=== PATIENT | female | born 1995 | race Caucasian/White ===

== ENCOUNTER → 2021-09-02 15:16 | Outpatient (BNVA) | payer MEDICAID, SELFPAY | PROVIDERS: Visit Provider Obstetrics & Gynecology | DX: O99.891 Other specified diseases and conditions complicating pregnancy (principal); R31.9 Hematuria, unspecified; Z3A.00 Weeks of gestation of pregnancy not specified | CPT/HCPCS: 84315; 87086 ==

== ENCOUNTER → 2021-09-11 15:00 | Outpatient (BNVA) | payer MEDICAID, SELFPAY | PROVIDERS: Visit Provider Obstetrics & Gynecology | DX: Z34.90 Encounter for supervision of normal pregnancy, unspecified, unspecified trimester (principal) | CPT/HCPCS: 84315; 87086 ==

== ENCOUNTER → 2021-09-12 10:57 | Outpatient (BNVA) | payer MEDICAID, SELFPAY | PROVIDERS: Visit Provider Obstetrics & Gynecology | DX: Z34.90 Encounter for supervision of normal pregnancy, unspecified, unspecified trimester (principal); Z20.822 Contact with and (suspected) exposure to COVID-19 | CPT/HCPCS: 84315; 87635 ==

== ENCOUNTER 2021-09-18 12:33 | Inpatient (IN) | payer MEDICAID, SELFPAY ==
[2021-09-18] VITALS (19 sets, daily range): BP systolic 102–138; BP diastolic 51–78; PULSE 68–110; RESP 16–17; TEMP 36.2–36.8; BMI 38.7
[2021-09-18] MEDS: miSOPROStol 100 mcg tablet 25 MCG VAGINAL ×3 (13:38→22:03)
[2021-09-18] MEDS: dextrose 5%-lactated ringers 1,000 ML 125 ML IV (13:51)
[2021-09-18] MEDS: ampicillin 2,000 MG in sodium chloride 0.9% (plus) 50 ML 100 MG IV (13:51)
[2021-09-18 16:19] LABS: Basophils # 0.1 10^3/uL (0.0-0.1); Basophils % 0.4 %; Eosinophils # 0.2 10^3/uL (0.0-0.8); Eosinophils % 1.7 %; Hematocrit 36.3 % (37.0-47.0); Hemoglobin 11.5 g/dL (11.5-15.3); Lymphocytes # 2.2 10^3/uL (0.8-4.8); Lymphocytes % 17.3 %; Mean Corpuscular HGB Conc 31.7 g/dL (30.0-36.0); Mean Corpuscular Hemoglobin 26.9 pg (28.0-34.0); Mean Platelet Volume 11.2 fL (7.4-10.4); Monocytes # 0.8 10^3/uL (0.2-0.9); Neutrophils # 9.28 10^3/uL (1.8-7.7); Neutrophils % 73.8 %; Nucleated Red Blood Cells % 0 %; Platelet Count 296 10^3/cmm (130-400); Red Blood Count 4.27 10^6/uL (4.1-5.3); White Blood Count 12.6 10^3/uL (4.0-10.0)
[2021-09-18 16:52] LABS: Amphetamines Screen Urine Negative (Negative); Barbiturates Screen Urine Negative (Negative); Benzodiazepines Screen Urine Negative (Negative); Cocaine Screen Urine Negative (Negative); Opiate Screen Urine Negative (Negative); PCP Screen Urine Negative (Negative); THC Screen Urine Negative (Negative)
[2021-09-18] MEDS: ampicillin 1,000 MG in sodium chloride 0.9% (plus) 50 ML 100 MG IV ×2 (18:02→22:03)
[2021-09-19] VITALS (41 sets, daily range): BP systolic 97–140; BP diastolic 52–80; PULSE 63–99; RESP 15–17; TEMP 36.6–36.8; O2SAT 94–98
[2021-09-19] MEDS: fentaNYL 50 mcg/mL INJ 2mL IVP ×3 (01:15→04:05)
[2021-09-19] MEDS: ampicillin 1,000 MG in sodium chloride 0.9% (plus) 50 ML 100 MG IV (01:56)
--- NOTE | 2021-09-19 05:37 | P.PCNOB_ITS ---
Delivery Note: Date of delivery: September 19, 2021 Pre-delivery diagnoses: Term . Post-delivery diagnoses: Term delivered Procedure: Spontaneous vaginal delivery Delivering Physician: Maicol Shipman MD Estimated blood loss (mL): 300 Pre-Delivery Course: Ms. Rodríguez is a 26 year old patient with an LMP of 11/24/20, AALIYAH of 09/16/21 based on her 7 week sonogram placing her at 40+3 weeks gestation. She was admitted for elective induction. HPI: Received appropriate care. She was an OB transfered of care from Dr. Duke. care complicated by morbid obesity. labs have all been normal, including negative for HIV. She was found to positive for Group B Strep from screening at 36 weeks. She has gained approximately 35 lbs throughout the . She denies a history of HTN during . Glucose tolerance screening for gestational diabetes was negative. Delivery: The nurse called me that the patient was noted to be 7 cm dialated and 95% efface with rapid progression from 5cm with out epidural and urged to push. Then she call me 5 min later to informing the patient is complete and pushing. She progress rapidly to a precipitous delivery and without epidural anesthesia. At 0458 the patient delivered a viable term weighing 3300 g with scores of 8 and 9at one and five minutes, respectively. Then the placenta was delivered intact intact and the uterus was explored. 20 units of Pitocin was placed in the IV bag to firm the uterus. Examination of the cervix and vaginal vault did not reveal any lacerations. A vaginal pack was then placed. Examination of the perineum showed no lacerations noted. The vaginal pack was then removed. The patient tolerated this procedure well, and recovered in L&D with her in their LDR room. All sponge and needle counts were correct. History History History 4 Term 1 Miscarriages/Ectopic 2 0 Living Children 1 Coding Level of Care Code Acute Management Coordinator for Chg Cesilia
[2021-09-19] MEDS: dextrose 5%-lactated ringers 1,000 ML 125 ML IV (07:10)
--- NOTE | 2021-09-19 08:09 | PC.NURSE ---
Precipitous delivery without physician Primary RN, Leila, was in room with another patient starting an IV at 0440. ESSENCE James came in a patient room and reported to primary RN that patient was vomiting. Primary RN instructed ESSENCE James to perform SVE immediately. Last SVE had been done at 0405 with fentanyl administration. Exam was 5/95/-2. SVE at 0441 by ESSENCE James was 5.5/95 bulging BOW. Primary RN entered patient's room at 0445 as ESSENCE Xiong was performing SVE and reports 5.5 as well. Patient is visibly uncomfortable and verbalizing pressure. ESSENCE Xiong leaves to call physician for delivery. Primary RN remains with patient. SVE at 0448 is 7/95/-2. Primary RN coaching patient to breathe through contractions. Patient involuntarily pushing at 0457, SVE 10/100/+3, SROM clear fluid. ESSENCE Noyola Calls Dr Shipman again to report imminent delivery. Baby's head delivered in LUIS position at 0458, loose nuchal x1 reduced per primary RN, baby's body delivered immediately after. Baby placed on warm dry towel on mother's abdomen. Mouth and nose bulb suctioned, baby dried and stimulated. Minimal bleeding noted vaginally. Mother and baby supported by present staff. Physician arrives to the room at 0525. Patient set up in [facility], umbilical cord clamped per Dr Shipman and cut per support person. Placenta delivered at 0529.
[2021-09-19] MEDS: docusate sodium 100 mg Capsule PO ×2 (09:13→20:12)
[2021-09-19] MEDS: ibuprofen 800 mg tablet PO ×3 (09:13→21:17)
[2021-09-19] MEDS: prenatal vitamin Capsule 1 CAP PO (09:13)
--- NOTE | 2021-09-19 11:30 | PC.NURSE ---
pt ambulated to OB 11. oriented to room, call light, and proud parent pack.
[2021-09-19] MEDS: acetaminophen 325 mg Tablet 650 MG PO (13:35)
[2021-09-19 18:24] LABS: Hematocrit 32.1 % (37.0-47.0); Hemoglobin 10.3 g/dL (11.5-15.3); Mean Corpuscular HGB Conc 32.1 g/dL (30.0-36.0); Mean Corpuscular Hemoglobin 26.8 pg (28.0-34.0); Mean Corpuscular Volume 83.6 fl (81-99); Mean Platelet Volume 10.5 fL (7.4-10.4); Platelet Count 279 10^3/cmm (130-400); Red Blood Count 3.84 10^6/uL (4.1-5.3); Red Cell Distribution Width 13.9 % (12.1-15.1)
[2021-09-19] MEDS: benzocaine-menthol 78 gm Canister 1 SPRAY TOPICAL (20:12)
[2021-09-20] MEDS: acetaminophen 325 mg Tablet 650 MG PO (04:02)
[2021-09-20 04:45] VITALS: BP 104/61; PULSE 61; RESP 14; TEMP 36.6; O2SAT 97
[2021-09-20 08:00] VITALS: BP 111/68; PULSE 72; RESP 16; TEMP 36.7
[2021-09-20] MEDS: prenatal vitamin Capsule 1 CAP PO (09:34)
[2021-09-20] MEDS: docusate sodium 100 mg Capsule PO ×2 (09:34→18:01)
[2021-09-20] MEDS: ibuprofen 800 mg tablet PO ×3 (09:34→20:05)
--- NOTE | 2021-09-20 18:14 | P.DS_ITS ---
Discharge Providers SUPERINTENDENT DRILLING Date of Admission: 09/18/21 12:33 Date of Discharge: 09/29/21 Attending Provider at Admission: Maicol Shipman MD Attending Provider at Discharge: Maicol Shipman MD Reason for Visit Reason for Visit: Induction Hospital Course Hospital Course Ms. Rodríguez is a 26 year old patient with an LMP of 11/24/20, AALIYAH of 09/16/21 based on her 7 week sonogram placing her at 40+3 weeks gestation. She was admitted for elective induction. HPI: Received appropriate care. She was an OB transfered of care from Dr. Duke.? care complicated by morbid obesity. labs have all been normal, including negative for HIV. She was found to positive for Group B Strep from screening at 36 weeks. She has gained approximately 35 lbs throughout the . She denies a history of HTN during . Glucose tolerance screening for gestational diabetes was negative. She progressed to have a precipitous spontaneous vaginal delivery without complications. observation has been uneventful. She is afebrile and hemodynamically stable. Tolerating diet well. Ambulating without difficulty. Information Peripartum Data: Delivery Method: Vaginal Physical Exam Narrative: GA; alert and oriented x 3 HEENT: normal Breasts: engorged Nipples - skin intact Lungs; clear to auscultation Heart: regular rhythm, no murmurs. Abd: Appropriately tender. BS+. Uterine fundus below umbilicus. No Fundal Tenderness. Perineum: normal lochia. Extremities: no edema, no cyanosis, no tenderness. History History History 4 Term 1 Miscarriages/Ectopic 2 0 Living Children 1 Discharge Data Studies Completed and Pending Laboratory Results WBC 15.0 10^3/uL (4.0-10.0) H 09/19/21 18:05 RBC 3.84 10^6/uL (4.1-5.3) L 09/19/21 18:05 Hgb 10.3 g/dL (11.5-15.3) L 09/19/21 18:05 Hct 32.1 % (37.0-47.0) L 09/19/21 18:05 MCV 83.6 fl (81-99) 09/19/21 18:05 MCH 26.8 pg (28.0-34.0) L 09/19/21 18:05 MCHC 32.1 g/dL (30.0-36.0) 09/19/21 18:05 RDW 13.9 % (12.1-15.1) 09/19/21 18:05 Plt Count 279 10^3/cmm (130-400) 09/19/21 18:05 MPV 10.5 fL (7.4-10.4) H 09/19/21 18:05 Neut % (Auto) 73.8 % 09/18/21 13:25 Lymph % (Auto) 17.3 % 09/18/21 13:25 [place] % (Auto) 6.0 % 09/18/21 13:25 Eos % (Auto) 1.7 % 09/18/21 13:25 Baso % (Auto) 0.4 % 09/18/21 13:25 Neut # (Auto) 9.28 10^3/uL (1.8-7.7) H 09/18/21 13:25 Lymph # (Auto) 2.2 10^3/uL (0.8-4.8) 09/18/21 13:25 [place] # (Auto) 0.8 10^3/uL (0.2-0.9) 09/18/21 13:25 Eos # (Auto) 0.2 10^3/uL (0.0-0.8) 09/18/21 13:25 Baso # (Auto) 0.1 10^3/uL (0.0-0.1) 09/18/21 13:25 Nucleated RBC % (auto) 0 % 09/18/21 13:25 Nucleated RBCs # 0.0 /100WBC 09/18/21 13:25 Urine Opiates Screen Negative ng/mL (Negative) 09/18/21 16:29 Ur Barbiturates Screen Negative ng/mL (Negative) 09/18/21 16:29 Ur Phencyclidine Scrn Negative ng/mL (Negative) 09/18/21 16:29 Ur Amphetamines Screen Negative ng/mL (Negative) 09/18/21 16:29 U Benzodiazepines Scrn Negative ng/mL (Negative) 09/18/21 16:29 Urine Cocaine Screen Negative ng/mL (Negative) 09/18/21 16:29 U Marijuana (THC) Screen Negative ng/mL (Negative) 09/18/21 16:29 Vitals Last Vital Signs Temp 98.0 F 09/20/21 08:00 Pulse 72 09/20/21 08:00 Resp 16 09/20/21 08:00 BP 111/68 09/20/21 08:00 Pulse Ox 97 09/20/21 04:45 Discharge Plan Discharge Patient Disposition: Home Condition: Stable Prescriptions: New ibuprofen 800 mg tablet 800 mg PO TID PRN (Reason: pain) Qty: 60 0RF Iron (ferrous sulfate) 325 mg (65 mg iron) tablet 325 mg PO BID Qty: 60 0RF Colace 100 mg capsule 100 mg PO BID Qty: 60 0RF acetaminophen 325 mg capsule 325 mg PO Q4H PRN (Reason: fever or pain) Qty: 60 0RF Continued Plus (calcium carb) 27 mg iron- 1 mg tablet 1 tab PO DAILY 0RF ferrous sulfate 325 mg (65 mg iron) tablet 325 mg PO DAILY 0RF famotidine [Pepcid] 20 mg tablet 20 mg PO DAILY 0RF Discharge Orders: Discharge Order (Routine); Ordered 09/20/21 Ordered By: Maicol Shipman Referrals: Maicol Shipman MD [Physician] - 6 Weeks (CALL THURSDAY MORNING AND MAKE APPOINTMENT FOR YOU 6 WEEK APPOINTMENT) Discharge Diet: Regular Discharge Activity: Limit activity as instructed Patient Instructions: Depression (DC), Bleeding (ED), Preeclampsia and Eclampsia After Delivery (GEN), OB Discharge Report, OB Food/Drug Interaction Guide, OB Care at Home, Opioid Safety, OB Home Care, OB Proud Parent Packet, OB Vaginal Deliveries - [facility], Abnormal Bleeding Activity Restrictions/Additional Instructions: 1. Please call [facility] on next working day to make your appointment in 6 weeks. 2. Please stay home until you come back to the clinic on first post-operative check up. 3. Please follow instructions on your medications CAREFULLY. 4. If you have abdominal incision, do not cover it unless dressing is necessary because of drainage. OK to shower, but avoid bath. Leave steri-strips until they fall off. If they are still on one week after surgery, you may remove them. 5. If you had vaginal surgery or vaginal repair, Dr. Shipman may instruct you to take SITZ bath. 6. Yellow, blood tinged odorous vaginal discharge is usually normal after hysterectomy or vaginal surgeries. 7. No sexual intercourse, tampons, or douches until you are completely released from the post-operative care. 8. Avoid constipation by eating right and maybe using some Metamucil or Milk of Magnesia. 9. All prescription refills are given during the working hours. Please do no wait till it runs out. Call the clinic at [phone] before your medication runs out. The clinic will get in touch with your doctor to prescribe medications if necessary. 10. Please remain within 40 mile radius from our hospital because emergencies do happen now and then during the post-operative period. 11. If you have stairs at home, take one step at a time slowly and minimize the number of trips. It helps to stay in one floor for the next few days. No lifting except what you can lift by one hand until you are released from the post-operative care. 12. Driving is discouraged until you are well healed. It may be 3-4 weeks before you feel strong enough to drive. You should be able to turn and look through the rear window without pain and you should be able to push the brake pedal very hard without pain before you drive. No fast rules, but SAFETY should be your primary concern. DO NOT drive if you are on sedating medications such as narcotics. 13. Call the clinic (during working hours) to make urgent appointment or go to the Emergency room, if any of the following occurs: i. Vaginal bleeding becomes heavy, more than a period. ii. Incision becomes red and sore, or drains pus. iii. Your temperature is over 100.4 or you have chill. iv. IV site becomes red and swollen (a little ``knot?? is usually OK) v. Persistent nausea and vomiting vi. Persistent constipation or diarrhea vii. Rash or allergic reaction to medications. Discharge Attestations SUPERINTENDENT DRILLING Time Spent in Discharge Care*: greater than 30 min Coding Level of Care Code Acute Steel Floor Pan Placing Supervisor for Kimberli Lomas
--- NOTE | 2021-09-20 18:54 | PC.NURSE ---
THIS GLOVE CUTTER CALLED [facility] IN [facility] AND PATIENTS MEDICATIONS DID GO THRU ORDERED.
[2021-09-20 20:10] VITALS: BP 117/73; PULSE 68; RESP 16; TEMP 36.7; O2SAT 98
[2021-09-20 20:20] VITALS: BP 117/73; PULSE 68; RESP 16; TEMP 36.7; O2SAT 98
== END 2021-09-20 20:20 | disposition home or self-care (01) | DRG 806 ==
PROVIDERS: Obstetrics & Gynecology; Admitting Provider Obstetrics & Gynecology; Visit Provider Obstetrics & Gynecology
DX: O99.344 Other mental disorders complicating childbirth (principal); O99.324 Drug use complicating childbirth; Z37.0 Single live birth; O98.82 Other maternal infectious and parasitic diseases complicating childbirth; F41.8 Other specified anxiety disorders; F12.90 Cannabis use, unspecified, uncomplicated; B95.1 Streptococcus, group B, as the cause of diseases classified elsewhere; Z3A.40 40 weeks gestation of pregnancy
CPT/HCPCS: 36415; 59409; 80306; 85025; 85027; J0290; J3010

== ENCOUNTER → 2022-09-01 10:04 | Outpatient (BNVA) | payer MEDICAID, SELFPAY | PROVIDERS: Visit Provider Obstetrics & Gynecology | DX: O16.9 Unspecified maternal hypertension, unspecified trimester (principal); O26.90 Pregnancy related conditions, unspecified, unspecified trimester; R82.90 Unspecified abnormal findings in urine; Z3A.00 Weeks of gestation of pregnancy not specified | CPT/HCPCS: 84315; 87081; 87086 ==

== ENCOUNTER 2022-09-04 17:34 | Outpatient (CLI) | payer MEDICAID, SELFPAY ==
[2022-09-04 17:52] VITALS: BP 112/67; PULSE 95; TEMP 35.7
[2022-09-04 17:59] VITALS: BMI 44.9
[2022-09-04 18:08] VITALS: BP 121/76; PULSE 96
[2022-09-04 18:19] VITALS: RESP 16
[2022-09-04 18:22] VITALS: BP 117/68; PULSE 95
== END 2022-09-04 18:40 | disposition home or self-care (01) ==
LOC: OPOB 17:35 → OBGYN 17:36
PROVIDERS: Visit Provider Obstetrics & Gynecology
DX: O26.899 Other specified pregnancy related conditions, unspecified trimester (principal); Z3A.00 Weeks of gestation of pregnancy not specified
CPT/HCPCS: 59025; 99211

== ENCOUNTER 2022-09-17 14:20 | Outpatient (CLI) | payer MEDICAID, SELFPAY ==
[2022-09-17] VITALS (9 sets, daily range): BP systolic 110–162; BP diastolic 67–89; PULSE 83–106; TEMP 35.9; BMI 45.5
[2022-09-17] MEDS: dextrose 5%-lactated ringers 1,000 ML 999 ML IV ×2 (15:25→15:26)
[2022-09-17 15:43] LABS: Bilirubin Urine Neg (Negative); Blood Urine 3+ (Negative); Glucose Urine UA Norm (Normal); Ketones Urine 1+ (Negative); Leukocyte Esterase Urine 2+ (Negative); Nitrate Urine Negative (Negative); Protein Urine Neg (Negative); RBC Urine 15-25 /hpf (0-2); Urine Appearance Cloudy (CLEAR); Urine Color Yellow (Yellow); Urobilinogen Urine Neg (Negative); WBC Urine >100 /hpf (0-5); pH Urine 6 (5-7)
[2022-09-17 15:44] LABS: Add Urine Culture? No; Amorphous Sediment Urine 1+ /hpf; Bacteria Urine 3+ /hpf; Mucus Urine 1+ /hpf; Squamous Epithelial Cell Urine 15-25 /hpf (0-5)
--- NOTE | 2022-09-17 16:17 | PC.NURSE ---
1600 PT STATES PAIN STILL AN 8 BUT DOES ACT LIKE SHE FEELS BETTER. PT UP TO BATHROOM TO VOID.
[2022-09-17] MEDS: cefTRIAXone 2,000 MG in sodium chloride 0.9% (plus) 50 ML 100 MG IV (16:49)
== END 2022-09-17 18:00 | disposition home or self-care (01) ==
LOC: OPOB 14:24 → OBGYN 14:25
PROVIDERS: PCP Obstetrics & Gynecology; Visit Provider Obstetrics & Gynecology
DX: O26.899 Other specified pregnancy related conditions, unspecified trimester (principal); R10.9 Unspecified abdominal pain; M54.50 Low back pain, unspecified; Z3A.00 Weeks of gestation of pregnancy not specified
CPT/HCPCS: 59025; 81001; 87086; 99211; J0696; J7121

== ENCOUNTER → 2022-09-24 16:05 | Outpatient (BNVA) | payer MEDICAID, SELFPAY | PROVIDERS: PCP Obstetrics & Gynecology; Visit Provider Obstetrics & Gynecology | DX: Z34.90 Encounter for supervision of normal pregnancy, unspecified, unspecified trimester (principal) | CPT/HCPCS: 84315; 87086 ==

== ENCOUNTER 2022-09-29 13:54 | Outpatient (CLI) | payer MEDICAID, SELFPAY ==
[2022-09-29 13:54] VITALS: BMI 45.1
[2022-09-29 14:08] VITALS: BP 152/87; PULSE 104
[2022-09-29 14:28] VITALS: BP 125/70; PULSE 93
[2022-09-29 14:29] LABS: Nitrazine Paper, PH Negative
[2022-09-29 14:46] LABS: Actim Prom Negative
[2022-09-29 14:48] VITALS: BP 140/81; PULSE 81
[2022-09-29 14:58] VITALS: BP 140/81; PULSE 81; RESP 18
== END 2022-09-29 14:55 | disposition home or self-care (01) ==
LOC: OPOB 14:01 → OBGYN 14:01
PROVIDERS: PCP Obstetrics & Gynecology; Visit Provider Obstetrics & Gynecology
DX: O26.899 Other specified pregnancy related conditions, unspecified trimester (principal); Z3A.00 Weeks of gestation of pregnancy not specified; N89.8 Other specified noninflammatory disorders of vagina
CPT/HCPCS: 59025; 83986; 84112; 99211

== ENCOUNTER 2022-09-30 12:15 | Inpatient (IN) | payer MEDICAID, SELFPAY ==
[2022-09-30] VITALS (35 sets, daily range): BP systolic 118–155; BP diastolic 63–94; PULSE 71–100; RESP 16–18; TEMP 35.5–37.1; BMI 45.5
[2022-09-30] MEDS: ampicillin 2,000 MG in sodium chloride 0.9% (plus) 50 ML 100 MG IV (13:27)
[2022-09-30] MEDS: dextrose 5%-lactated ringers 1,000 ML 125 ML IV (13:27)
[2022-09-30 13:53] LABS: Basophils % 0.2 %; Eosinophils # 0.2 10^3/uL (0.0-0.8); Eosinophils % 1.2 %; Hematocrit 31.8 % (37.0-47.0); Hemoglobin 10.1 g/dL (11.5-15.3); Lymphocytes # 1.7 10^3/uL (0.8-4.8); Lymphocytes % 12.2 %; Mean Corpuscular HGB Conc 31.8 g/dL (30.0-36.0); Mean Corpuscular Hemoglobin 26.3 pg (28.0-34.0); Mean Corpuscular Volume 82.8 fl (81-99); Mean Platelet Volume 10.2 fL (7.4-10.4); Monocytes # 0.7 10^3/uL (0.2-0.9); Neutrophils # 11.03 10^3/uL (1.8-7.7); Neutrophils % 80.3 %; Nucleated Red Blood Cells % 0 %; Platelet Count 337 10^3/cmm (130-400); Red Blood Count 3.84 10^6/uL (4.1-5.3); Red Cell Distribution Width 15.1 % (12.1-15.1); White Blood Count 13.7 10^3/uL (4.0-10.0)
[2022-09-30] MEDS: miSOPROStol 100 mcg tablet 25 MCG VAGINAL ×2 (14:00→17:56)
[2022-09-30] MEDS: ampicillin 1,000 MG in sodium chloride 0.9% (plus) 50 ML 100 MG IV ×2 (17:55→21:29)
[2022-09-30] MEDS: fentaNYL 50 mcg/mL INJ 2mL IVP (23:29)
[2022-10-01] VITALS (52 sets, daily range): BP systolic 125–160; BP diastolic 58–96; PULSE 65–115; RESP 16–18; TEMP 36.6–36.8; O2SAT 92–99
[2022-10-01] MEDS: lactated ringers 1,000 ML 999 ML IV (00:30)
--- NOTE | 2022-10-01 00:45 | PC.NURSE ---
Patient's contractions are starting to taper down in frequency at this time. Dr. Aaron has given an order once her contractions slowed down to start moderate pitocin the patient is requesting to wait to start pitocin until she can get an epidural as when she has a contraction she rates the pain 9/10. I started her fluid bolus for epidural at this time. Patient did try fentanyl for pain control but stated it did not help.
[2022-10-01] MEDS: ampicillin 1,000 MG in sodium chloride 0.9% (plus) 50 ML 100 MG IV ×2 (01:12→05:23)
--- NOTE | 2022-10-01 01:49 | P.ANESASSM_ITS ---
Pre-Anesthetic Assessment Height/Weight: Height 1.57 m Weight 112.945 kg Temp Pulse Resp BP O2 Del Method 98.1 F 73 17 141/76 10/01/22 00:39 10/01/22 01:38 10/01/22 00:39 10/01/22 01:38 09/30/22 12:30 Preop Diagnosis: labor epidural Familial anesthetic complications: none Was Beta Cora taken within 24 hours: N/A Was Clonidine taken within 24 hours: N/A Last Intake: 16:00 Social No alcohol and No tobacco Exam alert, oriented x 3, clear to auscultation bilaterally and regular rate & rhythm Airway Submandibular: within normal limits Cervical ROM: within normal limits Mallampati: Class II Dentition: full Pulmonary None reported CV/HEM None reported None reported Hepatic None reported GI None reported Metabolic Morbid Ob[place] [facility] [place] None reported Neuropsych None reported Anesthetic Plan ASA status: 2 Anesthesia: Regional (specify below) (epidural) Medications/Allergies Home Medications Medication Instructions Recorded Confirmed Last Taken Type vitamin with calcium 1 tab PO DAILY 09/02/21 09/24/22 09/18/21 09:00 History no.72-iron 27 mg-folic acid 1 mg tablet ( Plus (calcium carbonate)) ferrous sulfate 325 mg (65 mg 325 mg PO DAILY 09/01/22 09/24/22 Unknown History iron) tablet hydroxyzine HCl 25 mg tablet 25 mg PO BID PRN Anxiety 09/01/22 09/24/22 Unknown History hydroxyzine HCl 25 mg tablet mg 09/17/22 09/24/22 09/17/22 08:00 History nitrofurantoin 100 mg PO BID 09/24/22 09/24/22 Unknown History monohydrate/macrocrystals 100 mg capsule (Macrobid) Allergies Allergy/AdvReac Type Severity Reaction Status Date / Time codeine Allergy Unknown unknown Verified 09/24/22 14:30 morphine Allergy Unknown unknown Verified 09/24/22 14:30 oxycodone Allergy Unknown unknown Verified 09/24/22 14:30 cephalexin [From Keflex] Allergy hives Verified 09/24/22 14:30 hydrocodone Allergy ALGY-Rash Verified 09/24/22 14:30 sulfamethoxazole AdvReac Mild ADR-Anxiety Verified 09/24/22 14:30 [From Bactrim] trimethoprim [From Bactrim] AdvReac Mild ADR-Anxiety Verified 09/24/22 14:30 Current Medications Generic Name Dose Route Start Last Admin Trade Name Borisq PRN Reason Stop Dose Admin Fentanyl 25 - 100 mcg 09/30/22 23:17 09/30/22 23:29 Fentanyl 50 Mcg/Ml Inj 2ml IVP 25 mcg Q1H PRN Administration SEVERE PAIN Ampicillin Sodium 1,000 mg/ 50 mls @ 100 mls/hr 09/30/22 17:15 10/01/22 01:12 Sodium Chloride IV 100 mls/hr Q4H GAETANO Administration Protocol Dextrose/Lactated Ringer's 1,000 mls @ 125 mls/hr 09/30/22 13:15 09/30/22 23:38 Dextrose 5%-Lactated Ringers IV Not Given .Q8H GAETANO Lactated Ringer's 1,000 mls @ 999 mls/hr 09/30/22 13:12 10/01/22 00:30 Lactated Ringers IV 999 mls/hr .Q1H1M PRN Administration Per L&D Rescitation Protocol Ropivacaine 200 mg in 100 mls @ 6 mls/hr 10/01/22 01:15 10/01/22 01:22 Naropin Premix EPIDURAL 6 mls/hr .[id number] GAETANO Administration PFSH Anesthesia Medical History Depression Surgical History History of cholecystectomy History of D&C Family History Mother Cancer lung Grandfather Cancer Maternal--lung Diabetes Maternal Denies family history of CAD (coronary artery disease) Clotting disorder Hyperlipidemia Chronic kidney disease (CKD) Bleeding disorder Hypertension Thyroid disease Stroke Female Reproductive History : 6 Data Anesthesia 09/30/22 13:00 Short CBC 09/30/22 Range/Units 13:00 WBC 13.7 H (4.0-10.0) 10^3/uL Hgb 10.1 L (11.5-15.3) g/dL Hct 31.8 L (37.0-47.0) % MCV 82.8 (81-99) fl Plt Count 337 (130-400) 10^3/cmm Neut % (Auto) 80.3 % Neut # (Auto) 11.03 H (1.8-7.7) 10^3/uL Cardiac Studies: No Data to Display
--- NOTE | 2022-10-01 02:39 | ANES.PROC ---
Anesthesia Procedures Procedure/Date: 10/01/22 Epidural: Time Out Performed: Yes Consents Signed: Procedure Consent and NPO Consent Consent: requested by attending/covering physician, from patient, risks and benefits reviewed, patient agrees to proceed and emergency procedure Lumbar Level: L3-L4 Epidural position: sitting Epidural procedure: sterile prep of area (betadine), 1% lidocaine to numb the area (3ml), 18 g needle, neg for paresthesia, test dose given, 1.5% xylocaine 1:200k epi (3ml/2ml), 0.2% Ropivacaine bolus ml (5ml), placed PCEA, no systemic response, sterile dressing applied, L.U.D. no apparent complications and 0.2% Ropiavacaine @ mls/hr (10ml/hr)
[2022-10-01] MEDS: oxytocin 30 UNIT/500 ML BAG IV (05:00)
--- NOTE | 2022-10-01 06:09 | PM.OPHPUD ---
Labor & Delivery H&P Update Date of Procedure: October 01, 2022 Date H&P Performed: 09/24/22 H&P update information: I have reviewed H&P completed within last 30 days, I have examined patient prior to procedure and No changes to prior documentation Admission Diagnosis: Preop diagnosis: labor Related Problem List Diagnoses (1) Supervision of normal : (2) GBS (group B Streptococcus carrier), +RV culture, currently : (3) Anxiety and depression: (4) Morbid obesity:
--- NOTE | 2022-10-01 06:14 | PM.DELIVERY ---
Delivery Note: Date of delivery: October 01, 2022 Pre-delivery diagnoses: iup@ 40 weeks, 2 days, GBS positive, depression and anxiety, morbid obesity Post-delivery diagnoses: Same delivered Procedure: Delivering Physician: Agnieszka Estimated blood loss (mL): 10 Findings: Term male in the ERICA presentation with a single nuchal cord Pre-Delivery Course: The patient was admitted for induction at term. She received 2 doses of cytotec and was jose regularly. She received an epidural for pain management. She received 3 doses of ampicillin. She had complete cervical dilation and began pushing. Delivery: The patient had complete cervical dilation and began to push. The head delivered in the ERICA position over an intact perineum under the general anesthesia. The shoulders and body delivered atraumatically. There was a single nuchal cord. I delivered through it. The nose and mouth were bulb suctioned. The baby delivered so rapidly, that there was not time to reduce the nuchal cord or bulb suction baby at the perineum. The baby was placed onto the mother's abdomen. The cord was clamped and cut. The placenta delivered spontaneously. It was inspected and found to be intact. Inspection of the perineum revealed no lacerations and no repair required. Estimated blood loss 10 mL. Apgars on baby were 8 at 1 minute and 9 at 5 minutes. Weight of baby is 6 pounds 12 ounces. Mother and baby were stable post delivery. History History History 6 Term 2 0 Miscarriages/Ectopic 3 Living Children 2 Coding Level of Care Code Acute Code for Chg Fwd
--- NOTE | 2022-10-01 08:14 | PC.NURSE ---
PATIENT UP TO BATHROOM, INSTRUCTED ON [facility] AND THEN BACK TO BED. DID VERY WELL. TOLD HER THE NEXT TIME SHE GOT UP THAT WE WOULD MOVE HER TO A DIFFERENT ROOM WITH A MORE COMFORTABLE BED. TOLD HER THAT TO LET US KNOW WHEN SHE NEEDED TO GO TO BATHROOM AGAIN AND THAT WE WOULD HELP HER AGAIN.
[2022-10-01] MEDS: ibuprofen 800 mg tablet PO ×3 (09:15→20:38)
[2022-10-01] MEDS: prenatal vitamin Capsule 1 CAP PO (09:15)
[2022-10-01] MEDS: docusate sodium 100 mg Capsule PO ×2 (09:15→17:53)
--- NOTE | 2022-10-01 11:05 | PC.NURSE ---
Pt, baby and all belongings transferred to room OB11. Pt oriented to room, pt denies any questions or concerns at this time.
--- NOTE | 2022-10-01 11:16 | ANE.PACU2 ---
Inpatient post-anesthesia follow up: Airway intact: Yes Vital signs: Temperature 98.2 F Pulse Rate 70 Respiratory Rate 18 Blood Pressure 128/74 Pulse Oximetry 98 Oxygen Delivery Me thod Room Air Oxygen Flow Rate Fraction of Inspir ed Oxygen Hydration adequate: Yes Nausea and vomiting: No Pain level: 2 Mental status: Baseline
[2022-10-01] MEDS: acetaminophen 325 mg Tablet 650 MG PO ×2 (16:34→23:09)
[2022-10-01] MEDS: alum-mag-hydroxide-sime 30 mL UDC PO (17:53)
[2022-10-01 19:12] LABS: Hematocrit 29.9 % (37.0-47.0); Hemoglobin 9.4 g/dL (11.5-15.3); Mean Corpuscular HGB Conc 31.4 g/dL (30.0-36.0); Mean Corpuscular Hemoglobin 26.2 pg (28.0-34.0); Mean Corpuscular Volume 83.3 fl (81-99); Mean Platelet Volume 10.2 fL (7.4-10.4); Platelet Count 293 10^3/cmm (130-400); Red Blood Count 3.59 10^6/uL (4.1-5.3); Red Cell Distribution Width 14.8 % (12.1-15.1); White Blood Count 14.9 10^3/uL (4.0-10.0)
[2022-10-02] VITALS (12 sets, daily range): BP systolic 131–143; BP diastolic 78–88; PULSE 65–80; RESP 14–18; TEMP 35.7–36.8; O2SAT 94–97
[2022-10-02] MEDS: lactated ringers 1,000 ML 999 ML IV (10:48)
[2022-10-02] MEDS: famotidine 20 mg/2 mL INJ IVP (11:28)
[2022-10-02] MEDS: citric acid-sodium citrate 30 mL UDC PO (11:28)
[2022-10-02] MEDS: metoclopramide 5 mg/mL SDV 2 mL 10 MG IVP (11:29)
[2022-10-02] MEDS: ondansetron 2 mg/ML SDV 2 mL 4 MG IVP (14:11)
--- NOTE | 2022-10-02 14:15 | ANES.PREANE2 ---
Pre-Anesthetic Assessment Height/Weight: Height 1.57 m Weight 112.945 kg Temp Pulse Resp BP Pulse Ox O2 Del Method 98.3 F 66 14 131/82 97 10/02/22 10:30 10/02/22 10:30 10/02/22 10:30 10/02/22 10:30 10/02/22 10:30 10/02/22 10:30 Preop Diagnosis: labor Operation Date: 10/02/22 12:00 Proposed Procedures p Post Bilateral Tubal Ligation(Bilateral) - Nestor Guardado MD Familial anesthetic complications: none Was Beta Cora taken within 24 hours: N/A Was Clonidine taken within 24 hours: N/A Social No alcohol and No tobacco Exam alert, oriented x 3, clear to auscultation bilaterally and regular rate & rhythm Airway Submandibular: within normal limits Cervical ROM: within normal limits Mallampati: Class II Dentition: full CV/HEM Anemia Metabolic Morbid Obesity Neuropsych Anxiety and Depression Anesthetic Plan ASA status: 2 Anesthesia: General Medications/Allergies Home Medications Medication Instructions Recorded Confirmed Last Taken Type vitamin with calcium 1 tab PO DAILY 09/02/21 09/24/22 09/18/21 09:00 History no.72-iron 27 mg-folic acid 1 mg tablet ( Plus (calcium carbonate)) ferrous sulfate 325 mg (65 mg 325 mg PO DAILY 09/01/22 09/24/22 Unknown History iron) tablet hydroxyzine HCl 25 mg tablet 25 mg PO BID PRN Anxiety 09/01/22 09/24/22 Unknown History hydroxyzine HCl 25 mg tablet mg 09/17/22 09/24/22 09/17/22 08:00 History nitrofurantoin 100 mg PO BID 09/24/22 09/24/22 Unknown History monohydrate/macrocrystals 100 mg capsule (Macrobid) Allergies Allergy/AdvReac Type Severity Reaction Status Date / Time codeine Allergy Unknown unknown Verified 09/24/22 14:30 morphine Allergy Unknown unknown Verified 09/24/22 14:30 oxycodone Allergy Unknown unknown Verified 09/24/22 14:30 cephalexin [From Keflex] Allergy hives Verified 09/24/22 14:30 hydrocodone Allergy ALGY-Rash Verified 09/24/22 14:30 sulfamethoxazole AdvReac Mild ADR-Anxiety Verified 09/24/22 14:30 [From Bactrim] trimethoprim [From Bactrim] AdvReac Mild ADR-Anxiety Verified 09/24/22 14:30 Current Medications Generic Name Dose Route Start Last Admin Trade Name Freq PRN Reason Stop Dose Admin Acetaminophen 650 mg 09/30/22 13:12 10/01/22 23:09 Acetaminophen 325 Mg Tablet PO 650 mg Q6H PRN Administration Mild pain or temp > 100.4 Al Hydrox/Mg Hydrox/Simethicone 30 ml 09/30/22 13:12 10/01/22 17:53 Xwpv-Wdi-Gmitlpxog-Cornelio 30 Ml Udc PO 30 ml Q4H PRN Administration INDIGESTION Docusate Sodium 100 mg 10/01/22 09:00 10/02/22 10:44 Docusate Sodium 100 Mg Capsule PO Not Given BID GAETANO Fentanyl 25 - 100 mcg 09/30/22 23:17 09/30/22 23:29 Fentanyl 50 Mcg/Ml Inj 2ml IVP 25 mcg Q1H PRN Administration SEVERE PAIN Ibuprofen 800 mg 10/01/22 09:00 10/02/22 10:44 Ibuprofen 800 Mg Tablet PO Not Given TID GAETANO Nitrofurantoin Macrocrystals 100 mg 10/01/22 09:00 10/02/22 10:43 Nitrofurantoin Sr (Bid) 100 Mg Capsule PO Not Given BID GAETANO Ondansetron HCl 4 mg 09/30/22 13:12 10/02/22 14:11 Ondansetron 2 Mg/Ml Sdv 2 Ml IVP 4 mg Q4H PRN Administration NAUSEA AND VOMITING Multivit/Folic Acid/Iron 1 cap 10/01/22 09:00 10/02/22 10:44 Vitamin Capsule PO Not Given DAILY [facility] Anesthesia Medical History (Updated 10/01/22 @ 06:16 by Shelley Aaron MD) Depression HPV in female Surgical History History of cholecystectomy History of D&C Family History Mother Cancer lung Grandfather Cancer Maternal--lung Diabetes Maternal Denies family history of CAD (coronary artery disease) Clotting disorder Hyperlipidemia Chronic kidney disease (CKD) Bleeding disorder Hypertension Thyroid disease Stroke Female Reproductive History : 6 Data Anesthesia 10/01/22 18:30 Short CBC 10/01/22 Range/Units 18:30 WBC 14.9 H (4.0-10.0) 10^3/uL Hgb 9.4 L (11.5-15.3) g/dL Hct 29.9 L (37.0-47.0) % MCV 83.3 (81-99) fl Plt Count 293 (130-400) 10^3/cmm Cardiac Studies: No Data to Display
--- NOTE | 2022-10-02 14:17 | ANE.PACU2 ---
Inpatient post-anesthesia follow up: Airway intact: Yes Vital signs: Temperature 98.3 F Pulse Rate 66 Respiratory Rate 14 Blood Pressure 131/82 Pulse Oximetry 97 Oxygen Delivery Me thod Room Air Oxygen Flow Rate Fraction of Inspir ed Oxygen Hydration adequate: Yes Nausea and vomiting: No Pain level: 2 Mental status: Baseline
--- NOTE | 2022-10-02 14:24 | PM.DCS ---
Discharge Providers Date of Admission: 09/30/22 12:15 Date of Discharge: October 02, 2022 Attending Provider at Admission: Shelley Aaron MD Attending Provider at Discharge: Shelley Aaron MD Primary Care Provider: Shelley Aaron MD Diagnoses at Discharge Discharge Diagnosis (1) Supervision of normal : Status: Acute (2) GBS (group B Streptococcus carrier), +RV culture, currently : Status: Acute (3) Anxiety and depression: Status: Acute (4) Morbid obesity: Status: Acute Reason for Visit Reason for Visit: induction of labor Hospital Course Hospital Course The patient was admitted for induction of labor at term. She had spontaneous delivery of a term . She did well . She received a tubal on PPD#1 and was requesting discharge. Physical Exam Narrative: The patient is doing well today. No concerns. Const: COMMON NORMALS: no acute distress, patient oriented x3, no limitations, healthy appearing, alert and well nourished GENERAL APPEARANCE: cooperative, comfortable, well kempt and well developed ORIENTATION/CONSCIOUSNESS: Yes awake, Yes oriented to person, Yes oriented to place and Yes oriented to time Resp: COMMON NORMALS: normal respiratory effort EFFORT & INSPECTION: Yes able to speak in complete sentences GI: COMMON NORMALS: Soft to palpation and non-tender PALPATION: Yes Soft to palpation Extremity: COMMON NORMALS: no calf tenderness Neuro: COMMON NORMALS: patient oriented x3 SENSORIUM/ORIENTATION: Yes alert, Yes oriented to person, Yes oriented to place and Yes oriented to time Psych: COMMON NORMALS: mental status grossly normal, Normal thought process present, cooperative, normal affect and speech normal APPEARANCE: Yes well kempt SPEECH: Yes normal speech THOUGHT PROCESS: Normal thought process present Urinary Catheter Management: G[place]: Cath Placed During This Visit: yes, but has since been removed by the nurse Reason for Continuing Indwelling Catheter: Decision to DC Catheter Urinary Catheter Date of Insertion: 10/01/22 Urinary Catheter Time of Insertion: 03:17 Date Urinary Catheter Removed: 10/01/22 Time Urinary Catheter Discontinued: 06:00 Discharge Data Studies Completed and Pending Pending at discharge Category Date Time Status Pathology: Surgical [PTH] Stat Pth 10/02/22 13:40 Received Laboratory Results WBC 14.9 10^3/uL (4.0-10.0) H 10/01/22 18:30 RBC 3.59 10^6/uL (4.1-5.3) L 10/01/22 18:30 Hgb 9.4 g/dL (11.5-15.3) L 10/01/22 18:30 Hct 29.9 % (37.0-47.0) L 10/01/22 18:30 MCV 83.3 fl (81-99) 10/01/22 18: MCH 26.2 pg (28.0-34.0) L 10/01/22 18:30 MCHC 31.4 g/dL (30.0-36.0) 10/01/22 18:30 RDW 14.8 % (12.1-15.1) 10/01/22 18:30 Plt Count 293 10^3/cmm (130-400) 10/01/22 18:30 MPV 10.2 fL (7.4-10.4) 10/01/22 18:30 Neut % (Auto) 80.3 % 09/30/22 13:00 Lymph % (Auto) 12.2 % 09/30/22 13:00 [place] % (Auto) 5.0 % 09/30/22 13:00 Eos % (Auto) 1.2 % 09/30/22 13:00 Baso % (Auto) 0.2 % 09/30/22 13:00 Neut # (Auto) 11.03 10^3/uL (1.8-7.7) H 09/30/22 13:00 Lymph # (Auto) 1.7 10^3/uL (0.8-4.8) 09/30/22 13:00 [place] # (Auto) 0.7 10^3/uL (0.2-0.9) 09/30/22 13:00 Eos # (Auto) 0.2 10^3/uL (0.0-0.8) 09/30/22 13:00 Baso # (Auto) 0.0 10^3/uL (0.0-0.1) 09/30/22 13:00 Nucleated RBC % (auto) 0 % 09/30/22 13:00 Nucleated RBCs # 0.0 /100WBC 09/30/22 13:00 Vitals Last Vital Signs Temp 98.3 F 10/02/22 10:30 Pulse 66 10/02/22 10:30 Resp 14 10/02/22 10:30 BP 131/82 10/02/22 10:30 Pulse Ox 97 10/02/22 10:30 O2 Del Method 10/02/22 10:30 Discharge Plan Discharge Patient Disposition: Home Condition: Stable Prescriptions: New tramadol 50 mg tablet 50 mg PO Q6H Qty: 30 0RF oxycodone-acetaminophen 5-325 mg tablet 1 tab PO Q6H PRN (Reason: pain) Qty: 30 0RF Continued Plus (calcium carb) 27 mg iron- 1 mg tablet 1 tab PO DAILY hydroxyzine HCl 25 mg tablet 25 mg PO BID PRN (Reason: Anxiety) ferrous sulfate 325 mg (65 mg iron) tablet 325 mg PO DAILY nitrofurantoin monohyd/m-cryst [Macrobid] 100 mg capsule 100 mg PO BID Rx Instructions: must administer with a meal/food hydroxyzine HCl 25 mg tablet Discharge Orders: Discharge Order (Routine); Ordered 10/02/22 Ordered By: Shelley Aaron Referrals: Shelley Aaron MD [Primary Care Provider] - 10/15/22 10:45 am (2 week post-: 10/15/22 @10:45 6 week post-: 11/05/22 @9:15) Patient Instructions: Depression (DC), Preeclampsia and Eclampsia After Delivery (GEN), OB Discharge Report, OB Food/Drug Interaction Guide, Opioid Safety, OB Home Care, OB Vaginal Deliveries - [facility], Abnormal Bleeding Discharge Attestations Time Spent in Discharge Care*: less than 30 min Quality Metrics Clinical Quality Measures [ No reported AMI, CVA or VTE this stay] Coding Level of Care Code Acute Code for Chg Fwd Diagnoses Supervision of normal Z34.90 GBS (group B Streptococcus carrier), +RV culture, currently O99.820 Anxiety and depression F41.9; F32.A Morbid obesity E66.01
[2022-10-02] MEDS: HYDROcodone-acetaminophen 5-325 mg Tablet 2 TAB PO (14:57)
--- NOTE | 2022-10-06 08:20 | P.OP_ITS ---
Operative Report Date of procedure: October 02, 2022 Pre-op diagnosis: Preop Diagnosis desires permanent sterilization s/p vaginal delivery, PPD #1 Post-op diagnosis: same Post-op findings: normal uterus / tubes Procedure done: bilateral partial salpingectomy Specimens removed/disposition: portions of bilateral fallopian tubes Surgeon: Nestor Guardado M.D. Estimated blood loss: 5 cc Complications: none Brief History: patient is s/p , PPD #1. Patient desires permanent sterilization. Refuses reversible types of control. Understands irreversibility of procedure. Procedure and risks explained to patient, including risks of infection, bleeding, injury to internal organs, anesthesia, blood transfusions. Patient understands and wants to proceed. Informed consent signed. Procedure: The patient was taken to the operating room and placed supine on the table. General anesthesia was induced. The abdomen was prepped and draped in the usual sterile fashion. A 3 cm subumbilical skin incision was made and carried down through skin, subcutaneous tissue, and fasica. The peritoneum was entered bluntly. The left fallopian tube was identified to its fimbrial end. The mid- tube region was grasped with a [place] and an opening was made in the mesosalpinx. The fallopian tube was then ligated proximally and distally with a free tie of 2-O chromic. A 3 cm segment of fallopian tube was then excised using metzenbaum scissors. This was sent to pathology labeled as left fallopian tube . The proximal and distal ends were cauterized with Bovie. The right fallopian tube was similarly identified to its fimbrial end. An opening was made in the mesosalpinx and the right fallopian tube was ligated proximally and distally with a tie of 2-O chromic. A 3 cm segment of right fallopian tube was excised using Metzenbaum scissors. This was sent to pathology labeled as right fallopian tube . The proximal and distal ends were cauterized with Bovie. Inspection of the tubal ligation sites showed no bleeding. The fascia was then closed with a continuous stitch of O-Vicryl. The skin incision was then reapproximated with a subcuticular stitch of 3-O chromic. Dermabond was applied. The patient was then taken to the recovery room in good condition.
== END 2022-10-02 17:25 | disposition home or self-care (01) | DRG 798 ==
PROVIDERS: Obstetrics & Gynecology; Admitting Provider Obstetrics & Gynecology; PCP Obstetrics & Gynecology; Visit Provider Obstetrics & Gynecology
PROC: (CPT 58605; principal; 2022-10-02 12:00)
DX: O99.824 Streptococcus B carrier state complicating childbirth (principal); Z37.0 Single live birth; O99.344 Other mental disorders complicating childbirth; O99.214 Obesity complicating childbirth; E66.01 Morbid (severe) obesity due to excess calories; O69.2XX0 Labor and delivery complicated by other cord entanglement, with compression, not applicable or unspecified; Z3A.40 40 weeks gestation of pregnancy; F32.A Depression, unspecified; F41.9 Anxiety disorder, unspecified; Z30.2 Encounter for sterilization
CPT/HCPCS: 36415; 51702; 59025; 59409; 85025; 85027; 88302; 96374; 99211; J0290; J0330; J1100; J1885; J2405; J2590; J2704; J2710; J2765; J2795; J3010; J3490; J7120; J7121